=== PATIENT | female | born 1970 | race Caucasian/White ===

== ENCOUNTER 2016-11-04 15:41 | Inpatient (IN) | payer MEDICAID, OTHER ==
[~2016-11-04] VITALS: Ht 175.3 cm; Wt 117.8 kg
[~2016-11-04 15:41] MED LIST: ZOFR4TAB3 SL
[2016-11-04 16:17] VITALS: BP 147/101; PULSE 126; RESP 16; TEMP 99.3; O2SAT 97
[2016-11-04] MEDS ORDERED: SODIUM CHLORIDE 0.9% FLUSH 5 ML FLUSH IVF PRN (17:30)
--- NOTE | 2016-11-04 18:11 | RADHPO ---
EXAM DATE/TIME: 11/04/2016 17:33 [place] COMPARISON: CT ABDOMEN & PELVIS W/O CONTRAST, September 21, 2016, 20:07. INDICATIONS : Cough. MEDICAL HISTORY : None. SURGICAL HISTORY : Fusion, lumbar. ENCOUNTER: Initial ACUITY: 3 weeks PAIN SCORE: 2/10 LOCATION: Bilateral chest FINDINGS: There is focal opacity in the lateral left base which may be infiltrate or mass. Right lung is clear. No effusion is suspected. Cardiomediastinal contours are satisfactory. CONCLUSION: Left base parenchymal opacity. Followup to document clearing is recommended Cj Jain MD on November 04, 2016 at 18:08 Board Certified Radiologist. This report was verified electronically.
[2016-11-04 18:15] VITALS: BP 157/83; O2SAT 97
[2016-11-04 18:21] LABS: CHLORIDE 105 MEQ/L (98-107); POTASSIUM 3.8 MEQ/L (3.5-5.1); SODIUM (NA) 139 MEQ/L (136-145)
[2016-11-04 18:24] LABS: ANION GAP 10 MEQ/L (5-15); BICARBONATE 24.1 MEQ/L (21.0-32.0); BLOOD UREA NITROGEN 12 MG/DL (7-18); MAGNESIUM 2.3 MG/DL (1.5-2.5)
[2016-11-04 18:26] LABS: APTT (PATIENT) 27.6 SEC (24.3-30.1); PROTHROMBIN TIME - PATIENT 11.2 SEC (9.8-11.6)
[2016-11-04 18:27] LABS: ALT (GPT) 76 U/L (10-53); AST (GOT) 62 U/L (15-37)
[2016-11-04 18:28] LABS: AUTOMATED NEUTROPHIL # 10.9 TH/MM3 (1.8-7.7); BASOPHIL % 0.3 % (0.0-2.0); EOSINOPHIL # 0.2 TH/MM3 (0-0.4); EOSINOPHIL % 1.4 % (0.0-4.0); GLOMERULAR FILTRATION RATE 68 ML/MIN (>89); HEMATOCRIT 44.5 % (35.0-46.0); LYMPH % 13.9 % (9.0-44.0); LYMPHOCYTE # 1.8 TH/MM3 (1.0-4.8); MEAN CELL VOLUME 83.6 FL (80.0-100.0); MEAN CORPUSCULAR HEMOGLOBIN 27.1 PG (27.0-34.0); MEAN CORPUSCULAR HGB CONC 32.5 % (32.0-36.0); MONO % 2.4 % (0.0-8.0); PLATELET COUNT 306 TH/MM3 (150-450); RED BLOOD COUNT 5.33 MIL/MM3 (4.00-5.30); RED CELL DISTRIBUTION WIDTH 13.3 % (11.6-17.2); WHITE BLOOD COUNT 13.2 TH/MM3 (4.0-11.0)
[2016-11-04 18:29] LABS: TOTAL BILIRUBIN ADULT 0.5 MG/DL (0.2-1.0)
[2016-11-04 18:30] LABS: ALKALINE PHOSPHATASE 153 U/L (45-117)
[2016-11-04 18:45] LABS: HEMO FLAGS AUTO DIFF
[2016-11-04] MEDS ORDERED: PROMETHAZINE HCL 25 MG TAB PO ONE (19:00)
[2016-11-04] MEDS ORDERED: SODIUM CHLOR 0.9% 1000 ML INJ 1,000 ML IV ONE ×2 (19:15)
[2016-11-04 19:22] LABS: PLATELET ESTIMATE SMEAR NORMAL (NORMAL); PLATELET MORPHOLOGY NORMAL (NORMAL); SCAN/DIFF AUTO DIFF CONFIRMED
[2016-11-04 19:30] VITALS: BP 145/67; PULSE 101; RESP 22; O2SAT 96
[2016-11-04] MEDS ORDERED: BISACODYL 10 MG SUPP PR PRN (20:30)
[2016-11-04] MEDS ORDERED: ONDANSETRON HCL 4 MG/2 ML VIAL IVP PRN (20:30)
[2016-11-04] MEDS ORDERED: ACETAMINOPHEN/HYDROcodone 325 MG/10 MG TAB PO PRN (20:30)
[2016-11-04] MEDS ORDERED: Vancomycin Consult Pharmacy 1 EA OTHER SCH (20:30)
[2016-11-04] MEDS ORDERED: ACETAMINOPHEN/HYDROcodone 325 MG/5 MG TAB PO PRN (20:30)
[2016-11-04] MEDS ORDERED: SODIUM CHLORIDE 0.9% FLUSH 5 ML FLUSH FLUSH PRN (20:30)
[2016-11-04] MEDS: CEFEPIME INJ 1,000 MG in SODIUM CHLORIDE 0.9% INJ 100 ML IV SCH (21:25)
[2016-11-04] MEDS: ACETAMINOPHEN 325 MG TAB PO PRN (21:26)
--- NOTE | 2016-11-04 21:42 | PD ---
HPI Chief Complaint: Cold / Flu Symptoms Time Seen by Provider: 17:01 Travel History International Travel<30 days: No Contact w/Intl Traveler<30days: No Traveled to known affect area: No History of Present Illness HPI Patient is a 46-year-old female presents to emergency department 2 weeks with cough. Patient states she has had nonproductive cough and is concerned she might have developed a pneumonia. Since this time she is developed a rash in bilateral lower extremities. The rash is caused her to go to a local urgent care facility and she was referred to the emergency department further evaluation. Patient denies any fevers at home denies any shortness of breath or chest pain. She states she is otherwise healthy all of her childhood immunizations were done. She is to be in healthcare and she knows that she's had titers showing that she is immune to all vaccinatalbe diseases. PFSH Past Medical History Medical History: Denies Significant Hx Diminished Hearing: No Tetanus Vaccination: Unknown Influenza Vaccination: No ?: Not LMP: CANDY Past Surgical History Surgical History: No Previous Surgery Other Surgery: Yes (previous back injury) Social History Alcohol Use: No Tobacco Use: No Substance Use: No Allergies-Medications (Allergen,Severity, Reaction): Coded Allergies: Augmentin (Verified Allergy, Severe, 11/04/16) MD AND PATIENT HAVE OKAYED ORDER FOR AMPICILLIN - DR. WEINER SPOKE WITH ALVINO DUKES IN [facility] Biaxin (Verified Allergy, Severe, 11/04/16) Contrast Media (Verified Allergy, Severe, 11/04/16) Iopamidol (ISOVUE) (Verified Allergy, Severe, Meds Given - Hives/Rash, 11/04) Reported Meds & Prescriptions Reported Meds & Active Scripts Active No Active Prescriptions or Reported Medications Review of Systems Except as stated in HPI: all other systems reviewed are Neg Physical Exam Narrative GENERAL: Well-developed well-nourished in no apparent distress. Overweight. SKIN: Warm and dry. There are palpable purpura from the patient's hips posterior. There is also a small foci on her left flank. No cellulitis is observed. HEAD: Atraumatic. Normocephalic. EYES: Pupils equal and round. No scleral icterus. No injection or drainage. ENT: No nasal bleeding or discharge. Mucous membranes pink and moist. NECK: Trachea midline. No JVD. CARDIOVASCULAR: Regular rhythm and tachycardic. No murmur appreciated. RESPIRATORY: No accessory muscle use. No increased work of breathing. Clear to auscultation. Breath sounds equal bilaterally. GASTROINTESTINAL: Abdomen soft, non-tender, nondistended. Hepatic and splenic margins not palpable. MUSCULOSKELETAL: No obvious deformities. No clubbing. No cyanosis. No edema. NEUROLOGICAL: Awake and alert. No obvious cranial nerve deficits. Motor grossly within normal limits. Normal speech. PSYCHIATRIC: Appropriate mood and affect; insight and judgment normal. Data Data Last Documented VS Vital Signs Date Time Temp Pulse Resp B/P Pulse Ox O2 Delivery O2 Flow Rate FiO2 11/04/16 19:30 22 98 11/04/16 19:30 101 145/67 Room Air 11/04/16 16:17 99.3 Orders Electrocardiogram (11/04/16 17:21) Complete Blood Count With Diff (11/04/16 17:21) Comprehensive Metabolic Panel (11/04/16 17:21) Magnesium (Mg) (11/04/16 17:21) Prothrombin Time / Inr (Pt) (11/04/16 17:21) Act Partial Throm Time (Ptt) (11/04/16 17:21) Ecg Monitoring (11/04/16 17:21) Bilateral Bp Monitoring (11/04/16 17:21) Iv Access Insert/Monitor (11/04/16 17:21) Oximetry (11/04/16 17:21) Oxygen Administration (11/04/16 17:21) Sodium Chloride 0.9% Flush (Ns Flush) (11/04/16 17:30) Chest, Pa & Lat (11/04/16 17:21) Urinalysis - C+S If Indicated (11/04/16 17:21) Ed Urine Pregnancytest Poc (11/04/16 17:21) Blood Culture (11/04/16 19:00) Promethazine (Phenergan) (11/04/16 19:00) Sodium Chlor 0.9% 1000 Ml Inj (Ns 1000 M (11/04/16 19:15) Sodium Chlor 0.9% 1000 Ml Inj (Ns 1000 M (11/04/16 19:15) Lactic Acid (11/04/16 19:12) Westergren Sedimentation Rate (11/04/16 19:12) C-Reactive Protein (Crp) (11/04/16 16:55) Phosphorus (Po4) (11/04/16 16:55) Troponin I (11/04/16 16:55) Admit Order (Ed Use Only) (11/04/16 ) Labs Laboratory Tests Test 11/04/16 11/04/16 16:55 19:20 White Blood Count 13.2 TH/MM3 Red Blood Count 5.33 MIL/MM3 Hemoglobin 14.5 GM/DL Hematocrit 44.5 % Mean Corpuscular Volume 83.6 FL Mean Corpuscular Hemoglobin 27.1 PG Mean Corpuscular Hemoglobin 32.5 % Concent Red Cell Distribution Width 13.3 % Platelet Count 306 TH/MM3 Mean Platelet Volume 8.4 FL Neutrophils (%) (Auto) 82.0 % Lymphocytes (%) (Auto) 13.9 % Monocytes (%) (Auto) 2.4 % Eosinophils (%) (Auto) 1.4 % Basophils (%) (Auto) 0.3 % Neutrophils # (Auto) 10.9 TH/MM3 Lymphocytes # (Auto) 1.8 TH/MM3 Monocytes # (Auto) 0.3 TH/MM3 Eosinophils # (Auto) 0.2 TH/MM3 Basophils # (Auto) 0.0 TH/MM3 CBC Comment AUTO DIFF Differential Comment AUTO DIFF CONFIRMED Platelet Estimate NORMAL Platelet Morphology Comment NORMAL Red Cell Morphology Comment NORMAL Erythrocyte Sedimentation Rate 36 mm/hr Prothrombin Time 11.2 SEC Prothromb Time International 1.0 RATIO Ratio Activated Partial 27.6 SEC Thromboplast Time Sodium Level 139 MEQ/L Potassium Level 3.8 MEQ/L Chloride Level 105 MEQ/L Carbon Dioxide Level 24.1 MEQ/L Anion Gap 10 MEQ/L Blood Urea Nitrogen 12 MG/DL Creatinine 0.89 MG/DL Estimat Glomerular Filtration 68 ML/MIN Rate Random Glucose 124 MG/DL Calcium Level 8.6 MG/DL Phosphorus Level 2.7 MG/DL Magnesium Level 2.3 MG/DL Total Bilirubin 0.5 MG/DL Aspartate Amino Transf 62 U/L (AST/SGOT) Alanine Aminotransferase 76 U/L (ALT/SGPT) Alkaline Phosphatase 153 U/L Troponin I LESS THAN 0.02 NG/ML C-Reactive Protein 16.00 MG/DL Total Protein 8.9 GM/DL Albumin 2.9 GM/DL Lactic Acid Level 1.4 mmol/L [facility] Medical Decision Making Medical Screen Exam Complete: Yes Emergency Medical Condition: Yes Differential Diagnosis HSP, vasculitis, Pneumonia, sepsis, Sirs, URI. Narrative Course Patient was roomed in the emergency department, mildly tachycardic on arrival. She is not febrile. She has one for surgical tear on arrival. Chest x-ray shows that she has pneumonia. Labs show an elevated white blood cell count confirming Sirs criteria and therefore sepsis. This was diagnosed after labs return. Merely following she was given 2 L normal saline bolus, fluid resuscitation was kept to a minimum after lactate returned at 1.4. She was started on Levaquin IV. She does have palpable purpura of the bilateral lower extremities. And a younger person would consider HSP as a cause however she seems out of the age range for this particular condition. Vasculitis is considered. ESR is minimally elevated CRP is likewise minimally elevated. Given her pneumonia with Sirs criteria and purpura, she was discussed with the hospitalist for admission who agrees. Diagnosis Primary Impression: Sepsis Qualified Code: A41.9 - Sepsis, due to unspecified organism Additional Impressions: Pneumonia Purpura Admitting Information Admitting Physician Requests: Admit Scripts No Active Prescriptions or Reported Meds Condition: Pascual Jiménez MD Nov 04, 2016 21:42
--- NOTE | 2016-11-04 22:45 | EKG ---
Date Performed: 11/04/2016 Time Performed: 17:38:16 PTAGE: 46 years EKG: Sinus tachycardia Lateral T wave changes are nonspecific Borderline ECG NO PREVIOUS TRACING DOCTOR: Cornelio Lepe Interpretating Date/Time 11/04/2016 22:43:58
[2016-11-04] MEDS ORDERED: VANCOMYCIN INJ 1,700 MG in SODIUM CHLORID 0.9% 500 ML INJ 500 ML IV SCH (23:00)
[2016-11-04] MEDS: VANCOMYCIN INJ 1,700 MG in SODIUM CHLORID 0.9% 500 ML INJ 500 ML IV SCH (23:05)
[2016-11-04 23:10] VITALS: BP 158/87; PULSE 92; RESP 16; O2SAT 97
[2016-11-05] VITALS (7 sets, daily range): BP systolic 115–150; BP diastolic 73–82; PULSE 91–110; RESP 18–20; TEMP 97.3–98.5; O2SAT 94–98
[2016-11-05 01:31] LABS: BLOOD, URINE NEG (NEG); GLUCOSE,URINE NEG (NEG); KETONE, URINE NEG (NEG); NITRITE,URINE NEG (NEG); PH, URINE 5.5 (5.0-8.5)
[2016-11-05] MEDS: SODIUM CHLOR 0.9% 1000 ML INJ 1,000 ML IV SCH ×4 (01:31→22:10)
[2016-11-05] MEDS: SODIUM CHLORIDE 0.9% FLUSH 5 ML FLUSH FLUSH SCH ×3 (01:31→21:00)
[2016-11-05 01:35] LABS: URINE COLOR AMBER (YELLW/STRAW)
[2016-11-05 01:37] LABS: WBC, URINE 0-2 /hpf (0-5)
[2016-11-05 01:38] LABS: COMMENT (UR) CULT NOT INDICATED; CULTURE IF INDICATED CULT NOT INDICATED; SQUAMOUS EPITHELIAL CELL URINE > 8 /hpf (0-5)
[2016-11-05 06:46] LABS: AUTOMATED NEUTROPHIL # 7.8 TH/MM3 (1.8-7.7); BASOPHIL % 0.2 % (0.0-2.0); EOSINOPHIL # 0.2 TH/MM3 (0-0.4); EOSINOPHIL % 2.2 % (0.0-4.0); HEMATOCRIT 39.4 % (35.0-46.0); HEMO FLAGS DIFF FINAL; LYMPH % 22.2 % (9.0-44.0); LYMPHOCYTE # 2.4 TH/MM3 (1.0-4.8); MEAN CELL VOLUME 84.3 FL (80.0-100.0); MEAN CORPUSCULAR HEMOGLOBIN 27.6 PG (27.0-34.0); MEAN CORPUSCULAR HGB CONC 32.8 % (32.0-36.0); MONO % 4.6 % (0.0-8.0); NEUT % 70.8 % (16.0-70.0); PLATELET COUNT 255 TH/MM3 (150-450); RED BLOOD COUNT 4.68 MIL/MM3 (4.00-5.30); RED CELL DISTRIBUTION WIDTH 13.7 % (11.6-17.2); WHITE BLOOD COUNT 10.9 TH/MM3 (4.0-11.0)
[2016-11-05 06:51] LABS: CHLORIDE 111 MEQ/L (98-107); SODIUM (NA) 144 MEQ/L (136-145)
[2016-11-05 07:16] LABS: ALKALINE PHOSPHATASE 113 U/L (45-117); ALT (GPT) 67 U/L (10-53); ANION GAP 10 MEQ/L (5-15); AST (GOT) 47 U/L (15-37); BICARBONATE 23.4 MEQ/L (21.0-32.0); BLOOD UREA NITROGEN 13 MG/DL (7-18); GLOMERULAR FILTRATION RATE 92 ML/MIN (>89); TOTAL BILIRUBIN ADULT 0.5 MG/DL (0.2-1.0)
[2016-11-05] MEDS: ACETAMINOPHEN 325 MG TAB PO PRN ×2 (07:17→22:06)
[2016-11-05] MEDS: CEFEPIME INJ 1,000 MG in SODIUM CHLORIDE 0.9% INJ 100 ML IV SCH ×2 (09:50→22:07)
[2016-11-05] MEDS: VANCOMYCIN INJ 1,700 MG in SODIUM CHLORID 0.9% 500 ML INJ 500 ML IV SCH ×2 (10:08→23:03)
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
[2016-11-05] MEDS: guaiFENesin E.R. 600 MG TAB PO SCH ×2 (13:40→22:05)
[2016-11-05] MEDS: diphenhydrAMINE HCL 25 MG CAP PO PRN ×2 (13:40→23:02)
[2016-11-05] MEDS: predniSONE 20 MG TAB PO SCH ×2 (13:40→22:05)
[2016-11-05] MEDS ORDERED: RESP: ALBUTEROL 2.5 MG/IPRATROPIUM 0.5 MG NEB (PRN) NEB (14:00)
[2016-11-05 15:58] LABS: RHEUMATOID FACTOR TRIGGER LESS THAN 10.0 IU/ML (0.0-14.9)
[2016-11-05] MEDS: RESP: ALBUTEROL 2.5 MG/IPRATROPIUM 0.5 MG NEB (SCH) NEB ×2 (15:59→21:50)
[2016-11-05] MEDS: HYDROcodone 5 MG/HOMATROPINE 1.5 MG SYRUP 5 ML CUP PO PRN (22:06)
[2016-11-06] VITALS: BP 118/66; PULSE 102; RESP 18; TEMP 97.2; O2SAT 96
[2016-11-06] MEDS: RESP: ALBUTEROL 2.5 MG/IPRATROPIUM 0.5 MG NEB (SCH) NEB ×3 (03:25→16:00)
[2016-11-06 04:00] VITALS: BP 115/61; PULSE 118; RESP 20; TEMP 97.7; O2SAT 98
[2016-11-06 07:08] LABS: BASOPHIL % 0.2 % (0.0-2.0); HEMATOCRIT 32.9 % (35.0-46.0); HEMO FLAGS DIFF FINAL; LYMPH % 9.2 % (9.0-44.0); LYMPHOCYTE # 0.7 TH/MM3 (1.0-4.8); MEAN CELL VOLUME 83.9 FL (80.0-100.0); MEAN CORPUSCULAR HEMOGLOBIN 27.8 PG (27.0-34.0); MEAN CORPUSCULAR HGB CONC 33.1 % (32.0-36.0); MONO % 0.9 % (0.0-8.0); NEUT % 89.7 % (16.0-70.0); PLATELET COUNT 237 TH/MM3 (150-450); POTASSIUM 4.1 MEQ/L (3.5-5.1); RED BLOOD COUNT 3.93 MIL/MM3 (4.00-5.30); RED CELL DISTRIBUTION WIDTH 12.9 % (11.6-17.2); WHITE BLOOD COUNT 7.8 TH/MM3 (4.0-11.0)
[2016-11-06 07:12] LABS: BICARBONATE 21.1 MEQ/L (21.0-32.0); MAGNESIUM 2.2 MG/DL (1.5-2.5)
[2016-11-06 08:00] VITALS: BP 138/60; PULSE 105; RESP 20; TEMP 97.7; O2SAT 96
[2016-11-06] MEDS: SODIUM CHLORIDE 0.9% FLUSH 5 ML FLUSH FLUSH SCH (09:00)
[2016-11-06] MEDS ORDERED: PHARMACY ORDERED LAB XX ONE (09:45)
[2016-11-06] MEDS: VANCOMYCIN INJ 1,700 MG in SODIUM CHLORID 0.9% 500 ML INJ 500 ML IV SCH (10:23)
[2016-11-06] MEDS: CEFEPIME INJ 1,000 MG in SODIUM CHLORIDE 0.9% INJ 100 ML IV SCH (10:24)
[2016-11-06] MEDS: guaiFENesin E.R. 600 MG TAB PO SCH (10:27)
[2016-11-06] MEDS: predniSONE 20 MG TAB PO SCH (10:27)
[2016-11-06] MEDS: SODIUM CHLOR 0.9% 1000 ML INJ 1,000 ML IV SCH (10:29)
--- NOTE | 2016-11-06 10:56 | HHI.PR ---
Subjective Remarks Patient seen and examined today. Patient states that she is feeling better. She is able take deeper breaths without coughing. Rash is improving. Objective Vitals Vital Signs Date Time Temp Pulse Resp B/P Pulse Ox O2 Delivery O2 Flow Rate FiO2 11/06/16 08:00 97.7 105 20 138/60 96 11/06/16 04:00 97.7 118 20 115/61 98 11/06/16 00:00 97.2 102 18 118/66 96 11/05/16 20:00 97.3 108 19 150/75 97 11/05/16 20:00 101 11/05/16 16:00 98.5 106 20 141/73 97 11/05/16 12:00 97.7 101 20 115/82 96 I/O 11/05/16 11/05/16 11/05/16 11/06/16 11/06/16 11/06/16 07:00 15:00 23:00 07:00 15:00 23:00 Intake Total 1690 ml 240 ml Balance 1690 ml 240 ml Intake Oral 120 ml 240 ml IV Total 1570 ml # Voids 2 2 2 # Bowel Movements 0 0 0 Result Diagram: 11/06/16 0635 11/06/16 0635 Objective Remarks GENERAL: Well-developed, well-nourished, in no acute distress. alert and orientated HEENT: Head is normocephalic without any lesions or masses noted. Facial features are symmetric. Eyes: Extraocular muscles are intact. Conjunctivae were clear. NECK: Supple without any masses. Trachea midline no deviation. No JVD, CARDIAC: Regular rhythm, regular rate. S1/S2 are heard. No murmurs gallops or rubs. LUNGS: Clear to auscultation bilaterally. No wheeze, rhonchi or rales. No use of accessory muscles on inspiration or expiration. ABDOMEN: Soft, nontender. Nondistended. Bowel sounds heard in all 4 quadrants. No organomegaly or masses. Negative rebound, negative guarding EXTREMITIES: No edema, pulses are equal bilaterally. No cyanosis or clubbing NEUROLOGY: Mood and affect appear appropriate. Cranial nerves II through XII grossly intact. Muscle strength 5/5 in upper and lower extremities bilaterally. Deep tendon reflexes are 2+ in upper and lower extremities bilaterally. SKIN: Patient does have pinpoint rash starting from lower back all way down to the feet. The rash is rather extensive with pinpoint petechial type lesions measuring less than 2 mm. On prolonged examination we could find some palpable lesions that could be considered palpable purpura. Rash appears to be clearing Urinary Catheter: No Vascular Central Line Catheter: No A/P Assessment and Plan Sepsis, resolved Patient met criteria on admission with leukocytosis, tachycardia, x-ray with left base opacity Patient started on empirical antibiotics include vancomycin and cefepime Blood cultures negative for 1 day Urinalysis is clear Awaiting influenza testing, strep pneumo, Legionella Left lung pneumonia Antibiotics as above Duo nebs as needed Continue guaifenesin 600 mg twice daily Continue prednisone 40 mg twice daily Continue Hycodan cough medicine Hyperglycemia, likely secondary to steroids use Check hemoglobin A1c Accu-Cheks with sliding scale insulin Leukocytosis, resolved Continue monitor CBC Purpura/petechiae, improving C-reactive protein and sedimentation rate are mildly elevated, Skin lesions are very minimally palpable. Appears to be more petechiae. However workup for vasculitis Awaiting Anca profile, ADITYA, hepatitis panel, HIV Rheumatoid factor,, complement C3/C4 are normal Chronic neck and back pain Continue pain control DVT prevention Sequential compression devices Written by Jay King PA-C, acting as scribe for Dr. De La Paz on 11/06/16 at 1245. The documentation accurately reflects the work and decisions performed face-to- face by Dr. De La Paz on 11/06/16 at 1245. Discharge Planning Discharge home in stable condition Activity: Ad vishal. Diet: Healthy heart diet Medications per medication reconciliation Follow-up with primary medical doctor in one week Jay King Nov 06, 2016 10:56
[2016-11-06] MEDS ORDERED: DEXTROSE 50% IN WATER 50 ML VIAL(D50) IV PUSH PRN (11:00)
[2016-11-06] MEDS ORDERED: GLUCAGON 1 MG/ML VIAL OTHER PRN (11:00)
[2016-11-06 12:00] VITALS: BP 129/74; PULSE 108; RESP 22; TEMP 97.4; O2SAT 96
--- NOTE | 2016-11-06 12:51 | HHI.DCPOC ---
Discharge Care Plan Diagnosis: (1) Sepsis (2) Pneumonia Goals to Promote Your Health * To prevent worsening of your condition and complications * To maintain your health at the optimal level Directions to Meet Your Goals Take your medications as prescribed Follow your dietary instruction Follow activity as directed Keep your appointments as scheduled Take your immunizations and boosters as scheduled If your symptoms worsen call your PCP, if no PCP go to Urgent Care Center or Emergency Room Smoking is Dangerous to Your Health. Avoid second hand smoke Call the 24-hour hour crisis hotline for domestic abuse at Jay King Nov 06, 2016 12:51
[2016-11-06] MEDS: diphenhydrAMINE HCL 25 MG CAP PO PRN (13:41)
[2016-11-06] MEDS: HYDROcodone 5 MG/HOMATROPINE 1.5 MG SYRUP 5 ML CUP PO PRN (13:41)
[2016-11-06] MEDS: INSULIN ASPART SUPPLEMENTAL SCALE SQ SCH ×2 (13:42→16:00)
[2016-11-06 14:02] LABS: HEMOGLOBIN A1a 1.6 %; HEMOGLOBIN Ao 83.2 %; HEMOGLOBIN LA1C 2.7 %; HEMOGLOBIN P3 4.1 %
[2016-11-06] MEDS ORDERED: CIPR250T52 PO (15:19)
[2016-11-06] MEDS ORDERED: AMOX500C PO (15:19)
[2016-11-06] MEDS ORDERED: PRED10 PO (15:19)
[2016-11-06] MEDS ORDERED: LEVA750T PO (15:29)
[2016-11-06] MEDS ORDERED: ALBUTEROL SULFATE 90 MCG/ACT HFA 8 GM INHALER INH PRN (15:30)
[2016-11-06] MEDS ORDERED: ALBUTEROL SULFATE 90 MCG/ACT HFA 18 GM INHALER INH SCH (18:00)
[2016-11-06] MEDS ORDERED: VANCOMYCIN INJ 1,250 MG in SODIUM CHLOR 0.9% 250 ML INJ 250 ML IV SCH (20:00)
[2016-11-07 15:07] LABS: ANA SCREEN NEG (NEG)
[2016-11-08] MEDS ORDERED: PHARMACY ORDERED LAB XX ONE (03:45)
[2016-11-09 03:50] LABS: MYELOPEROXIDASE LESS THAN 1.0 AI (<1.0); PROTEINASE-3 LESS THAN 1.0 AI (<1.0)
== END 2016-11-06 19:29 | disposition home or self-care (01) | DRG 871 ==
LOC: PHED 15:41 → PHEDA 20:16 → PH3A 11-05 01:12
PROVIDERS: ADMIT Family Medicine; ATTEND Family Medicine
DX: A41.9 Sepsis, unspecified organism (principal); J18.9 Pneumonia, unspecified organism; R21 Rash and other nonspecific skin eruption; G89.29 Other chronic pain; M54.2 Cervicalgia; M54.9 Dorsalgia, unspecified; Z87.442 Personal history of urinary calculi; L98.9 Disorder of the skin and subcutaneous tissue, unspecified; T38.0X5A Adverse effect of glucocorticoids and synthetic analogues, initial encounter; R73.9 Hyperglycemia, unspecified
CPT/HCPCS: 71020; 80048; 80053; 80074; 80202; 81001; 82948; 83036; 83605; 83735; 84100; 84484; 85025; 85610; 85652; 85730; 86021; 86038; 86140; 86160; 86430; 86703; 87040; 87449; 87804; 93005; 94640; 94664; 96360; J0692; J1815; J3370; J7030; J7040; J7512; Q0169

== ENCOUNTER 2018-01-26 00:29 | Inpatient (IN) | payer MEDICAID, OTHER ==
[2018-01-26] VITALS (9 sets, daily range): BP systolic 119–179; BP diastolic 58–82; PULSE 78–109; RESP 15–22; TEMP 96.5–98; O2SAT 94–99
[~2018-01-26] VITALS: Ht 167.6 cm; Wt 130.7 kg
[~2018-01-26 00:29] MED LIST changes: +LEVA750T PO; +PRED10 PO; -ZOFR4TAB3 SL
[2018-01-26] MEDS ORDERED: SODIUM CHLOR 0.9% 1000 ML INJ 1,000 ML IV ONE (01:27)
[2018-01-26] MEDS ORDERED: ONDANSETRON HCL 4 MG/2 ML VIAL IV PUSH ONE (01:30)
[2018-01-26] MEDS ORDERED: HYDROmorphone HCL PF 1 MG/ML VIAL IV PUSH ONE (01:30)
[2018-01-26] MEDS ORDERED: KETOROLAC TROMETHAMINE 30 MG/ML (IVP) VIAL IV PUSH ONE (01:30)
[2018-01-26] MEDS ORDERED: SODIUM CHLORIDE 0.9% FLUSH 10 ML FLUSH IVF PRN (01:30)
--- NOTE | 2018-01-26 01:32 | PD ---
HPI Chief Complaint: Flank/Kidney Pain Time Seen by Provider: 01:27 Travel History International Travel<30 days: No Contact w/Intl Traveler<30days: No Traveled to known affect area: No History of Present Illness HPI The patient is a 47-year-old female that complains of nausea, left-sided flank pain which is sharp and a 10/10, stabbing since 11 PM tonight. She does have a history of kidney stones. She denies any dysuria, frequency or urgency. The pain started suddenly. PFSH Past Medical History Cancer: No Cardiovascular Problems: No Diminished Hearing: No Endocrine: No Gastrointestinal Disorders: No Genitourinary: Yes Headaches: Yes (CONSTANT) Immune Disorder: No Implanted Vascular Access Dvce: No Kidney Stones: Yes Musculoskeletal: Yes Neurologic: Yes Psychiatric: No Respiratory: No ?: Not Past Surgical History Other Surgery: No (previous back injury) Social History Alcohol Use: No Tobacco Use: No Substance Use: No Allergies-Medications (Allergen,Severity, Reaction): Coded Allergies: amoxicillin (Unverified Allergy, Severe, 06/13/17) MD AND PATIENT HAVE OKAYED ORDER FOR AMPICILLIN - DR. WEINER SPOKE WITH ALVINO DUKES IN FAMILY PLACE clarithromycin (Unverified Allergy, Severe, 06/13/17) clavulanic acid (Unverified Allergy, Severe, 06/13/17) MD AND PATIENT HAVE OKAYED ORDER FOR AMPICILLIN - DR. WEINER SPOKE WITH ALVINO DUKES IN FAMILY PLACE diatrizoate meglumine (Unverified Allergy, Severe, 06/13/17) gadobenic acid (Unverified Allergy, Severe, 06/13/17) gadodiamide (Unverified Allergy, Severe, 06/13/17) gadoteridol (Unverified Allergy, Severe, 06/13/17) iodixanol (Unverified Allergy, Severe, 06/13/17) iohexol (Unverified Allergy, Severe, 06/13/17) iopamidol (Unverified Allergy, Severe, Meds Given - Hives/Rash, 06/13/17) Reported Meds & Prescriptions Reported Meds & Active Scripts Active Review of Systems Except as stated in HPI: all other systems reviewed are Neg Physical Exam Narrative GENERAL: The patient is alert, oriented 3, obese in moderate to severe distress with her left flank pain. Her vital signs show blood pressure 148/74 but are otherwise normal. SKIN: Focused skin assessment warm/dry. HEAD: Atraumatic. Normocephalic. EYES: Pupils equal and round. No scleral icterus. No injection or drainage. ENT: No nasal bleeding or discharge. Mucous membranes pink and moist. NECK: Trachea midline. No JVD. CARDIOVASCULAR: Regular rate and rhythm. No murmur appreciated. RESPIRATORY: No accessory muscle use. Clear to auscultation. Breath sounds equal bilaterally. GASTROINTESTINAL: Abdomen soft, with minimal tenderness to direct palpation over the left flank, nondistended. Hepatic and splenic margins not palpable. No guarding or rebound is present. MUSCULOSKELETAL: No obvious deformities. No clubbing. No cyanosis. No edema. NEUROLOGICAL: Awake and alert. No obvious cranial nerve deficits. Motor grossly within normal limits. Normal speech. PSYCHIATRIC: Appropriate mood and affect; insight and judgment normal. Data Data Last Documented VS Vital Signs Date Time Temp Pulse Resp B/P (MAP) Pulse Ox O2 Delivery O2 Flow Rate FiO2 01/26/18 00:36 97.2 90 18 148/74 (98) 96 Orders Orders Complete Blood Count With Diff (01/26/18 01:18) Comprehensive Metabolic Panel (01/26/18:18) Urinalysis - C+S If Indicated (01/26/18 01:18) Ct Abd/Pel W/O Iv Contrast (01/26/18 01:27) Ecg Monitoring (01/26/18 01:27) Iv Access Insert/Monitor (01/26/18 01:27) Ketorolac Inj (Toradol Inj) (01/26/18 01:30) Ondansetron Inj (Zofran Inj) (01/26/18 01:30) Sodium Chloride 0.9% Flush (Ns Flush) (01/26/18 01:30) Sodium Chlor 0.9% 1000 Ml Inj (Ns 1000 M (01/26/18 01:27) Hydromorphone Pf Inj (Dilaudid Pf Inj) (01/26/18 01:30) Hydromorphone Pf Inj (Dilaudid Pf Inj) (01/26/18 01:45) Ondansetron Inj (Zofran Inj) (01/26/18 02:15) Prochlorperazine Inj (Compazine Inj) (01/26/18 03:00) Ondansetron Inj (Zofran Inj) (01/26/18 03:15) Hydromorphone Pf Inj (Dilaudid Pf Inj) (01/26/18 03:15) Ciprofloxacin 400 Mg Premix (Cipro 400 M (01/26/18 04:00) Consult Urology (01/26/18 ) Admit To Inpatient (01/26/18 ) Vital Signs (Adult) Q4H (01/26/18 03:17) Activity Oob Ad Britney (01/26/18 03:17) Intake + Output SUE.QSHIFT (01/26/18 03:17) Diet Regular Basic (01/26/18 Breakfast) Sodium Chlor 0.9% 1000 Ml Inj (Ns 1000 M (01/26/18 03:17) Sodium Chloride 0.9% Flush (Ns Flush) (01/26/18 03:30) Sodium Chloride 0.9% Flush (Ns Flush) (01/26/18 09:00) Ondansetron Inj (Zofran Inj) (01/26/18 03:30) Comprehensive Metabolic Panel (01/27/18 06:00) Complete Blood Count With Diff (01/27/18 06:00) Scd Bilateral/Knee High SUE.BID (01/26/18 03:17) Giancarlo Bilateral/Knee High SUE.QSHIFT (01/26/18 03:19) Acetaminophen (Tylenol) (01/26/18 03:30) Acetamin-Hydrocod 325-5 Mg ([place] 5-325 (01/26/18 03:30) Morphine Inj (Morphine Inj) (01/26/18 03:30) Docusate Sodium-Senna (Karyn-Colace) (01/26/18 09:00) Magnesium Hydroxide Liq (Milk Of Magnesi (01/26/18 03:30) Sennosides (Senokot) (01/26/18 03:30) Bisacodyl Supp (Dulcolax Supp) (01/26/18 03:30) Lactulose Liq (Lactulose Liq) (01/26/18 03:30) Inpatient Certification (01/26/18 ) Labs Laboratory Tests Test 01/26/18 01:10 White Blood Count 13.8 TH/MM3 Red Blood Count 4.94 MIL/MM3 Hemoglobin 13.6 GM/DL Hematocrit 41.3 % Mean Corpuscular Volume 83.7 FL Mean Corpuscular Hemoglobin 27.5 PG Mean Corpuscular Hemoglobin Concent 32.9 % Red Cell Distribution Width 13.0 % Platelet Count 274 TH/MM3 Mean Platelet Volume 8.2 FL Neutrophils (%) (Auto) 78.2 % Lymphocytes (%) (Auto) 16.0 % Monocytes (%) (Auto) 4.3 % Eosinophils (%) (Auto) 0.9 % Basophils (%) (Auto) 0.6 % Neutrophils # (Auto) 10.8 TH/MM3 Lymphocytes # (Auto) 2.2 TH/MM3 Monocytes # (Auto) 0.6 TH/MM3 Eosinophils # (Auto) 0.1 TH/MM3 Basophils # (Auto) 0.1 TH/MM3 CBC Comment DIFF FINAL Differential Comment Blood Urea Nitrogen 16 MG/DL Creatinine 1.20 MG/DL Random Glucose 149 MG/DL Total Protein 8.3 GM/DL Albumin 3.9 GM/DL Calcium Level 9.2 MG/DL Alkaline Phosphatase 124 U/L Aspartate Amino Transf (AST/SGOT) 21 U/L Alanine Aminotransferase (ALT/SGPT) 34 U/L Total Bilirubin 0.3 MG/DL Sodium Level 141 MEQ/L Potassium Level 4.0 MEQ/L Chloride Level 109 MEQ/L Carbon Dioxide Level 22.0 MEQ/L Anion Gap 10 MEQ/L Estimat Glomerular Filtration Rate 48 ML/MIN MDM Medical Decision Making Medical Screen Exam Complete: Yes Emergency Medical Condition: Yes Medical Record Reviewed: Yes Interpretation(s) The CT abdomen/pelvis without IV contrast shows a 6 mm stone in the proximal left ureter just above the UPJ. There is mild to moderate hydronephrosis associated with this present there is a 5 mm nonobstructing stone of the left lower pole and no sooner obstructive uropathy is present on the right. Also incidentally noted is fatty liver and 12 mm cyst of the right hepatic lobe. These are stable. Differential Diagnosis Left ureteral stone, other obstructive uropathy, urinary tract infection, pyelonephritis, colitis Narrative Course Despite 8 mg of Zofran IV and 10 mg of Compazine IV the patient is still nauseated. She states the pain is a 3/10 and she can tolerate that. A 6 mm stone will be difficult to pass. Impression: Left ureteral stone with intractable pain. Plan: The patient is miserable and will need admission to the hospital. I discussed the patient with Dr. Gonzalez. Physician Communication Physician Communication I discussed the patient with Dr. Gonzalez, the patient will be admitted to her. Diagnosis Primary Impression: Left ureteral calculus Additional Impression: Intractable abdominal pain Admitting Information Admitting Physician Requests: Admit Bryon King MD Jan 26, 2018 01:32
[2018-01-26] MEDS ORDERED: HYDROmorphone HCL PF 2 MG/ML VIAL IV PUSH ONE ×2 (01:45→03:15)
[2018-01-26 01:46] LABS: AUTOMATED NEUTROPHIL # 10.8 TH/MM3 (1.8-7.7); BASOPHIL # 0.1 TH/MM3 (0-0.2); BASOPHIL % 0.6 % (0.0-2.0); EOSINOPHIL # 0.1 TH/MM3 (0-0.4); EOSINOPHIL % 0.9 % (0.0-4.0); HEMATOCRIT 41.3 % (35.0-46.0); HEMOGLOBIN 13.6 GM/DL (11.6-15.3); LYMPHOCYTE # 2.2 TH/MM3 (1.0-4.8); MEAN CELL VOLUME 83.7 FL (80.0-100.0); MEAN CORPUSCULAR HEMOGLOBIN 27.5 PG (27.0-34.0); MEAN CORPUSCULAR HGB CONC 32.9 % (32.0-36.0); MEAN PLATELET VOLUME 8.2 FL (7.0-11.0); MONO % 4.3 % (0.0-8.0); MONOCYTE # 0.6 TH/MM3 (0-0.9); NEUT % 78.2 % (16.0-70.0); PLATELET COUNT 274 TH/MM3 (150-450); RED BLOOD COUNT 4.94 MIL/MM3 (4.00-5.30); WHITE BLOOD COUNT 13.8 TH/MM3 (4.0-11.0)
[2018-01-26 01:53] LABS: CHLORIDE 109 MEQ/L (98-107); SODIUM (NA) 141 MEQ/L (136-145)
[2018-01-26 01:56] LABS: CALCIUM 9.2 MG/DL (8.5-10.1)
[2018-01-26 01:57] LABS: ALBUMIN 3.9 GM/DL (3.4-5.0); BLOOD UREA NITROGEN 16 MG/DL (7-18); GLUCOSE,RANDOM 149 MG/DL (74-106)
[2018-01-26 02:00] LABS: ALT (GPT) 34 U/L (10-53); AST (GOT) 21 U/L (15-37); GLOMERULAR FILTRATION RATE 48 ML/MIN (>89)
[2018-01-26 02:01] LABS: TOTAL BILIRUBIN ADULT 0.3 MG/DL (0.2-1.0)
[2018-01-26 02:02] LABS: TOTAL PROTEIN 8.3 GM/DL (6.4-8.2)
[2018-01-26 02:03] LABS: ALKALINE PHOSPHATASE 124 U/L (45-117)
[2018-01-26] MEDS ORDERED: ONDANSETRON HCL 4 MG/2 ML VIAL IV ONE ×2 (02:15→03:15)
--- NOTE | 2018-01-26 02:47 | RADRPT ---
EXAM DATE/TIME: 01/26/2018 02:13 [facility] COMPARISON: CT ABDOMEN & PELVIS W/O CONTRAST, September 21, 2016, 20:07. INDICATIONS : Left flank pain with hematuria. ORAL CONTRAST: No oral contrast ingested. RADIATION DOSE: 43.79 CTDIvol (mGy) MEDICAL HISTORY : Renal calculi. SURGICAL HISTORY : None. ENCOUNTER: Initial ACUITY: 1 day PAIN SCALE: 10/10 LOCATION: Left flank TECHNIQUE: Volumetric scanning of the abdomen and pelvis was performed. Using automated exposure control and ad justment of the mA and/or kV according to patient size, radiation dose was kept as low as reasonably achievable to obtain optimal diagnostic quality images. DICOM format image data is available electro nically for review and comparison. FINDINGS: There is a 6 mm stone in the proximal left ureter just below the UPJ. Associated mild to moderate hyd ronephrosis. There is a 5 mm nonobstructing stone of the left lower pole. No stone or obstructive uro marc on the right. Fatty liver with a long-term stable 12 mm cyst of the right hepatic lobe again noted. Noncontrast zaire earance of the spleen, pancreas and adrenal glands within normal limits. No obstruction or inflammato ry changes seen of the gastrointestinal tract. The appendix is normal. The Visualized lung bases are clear. No acute bony abnormality. CONCLUSION: 1. 6 mm stone in the proximal left ureter causing mild to moderate obstructive uropathy. The stone ca n be seen on the initial grease worker radiograph. There is a nonobstructing stone of the left lower pole. 2. Fatty liver and a benign right hepatic lobe cyst. Cj Persaud MD on January 26, 2018 at 2:41 Board Certified Radiologist. This report was verified electronically.
[2018-01-26] MEDS ORDERED: PROCHLORPERAZINE INJ 10 MG/2 ML VIAL IV PUSH ONE (03:00)
[2018-01-26] MEDS: CIPROFLOXACIN 400 MG PREMIX 200 ML IV SCH ×2 (03:28→15:30)
[2018-01-26] MEDS: SODIUM CHLOR 0.9% 1000 ML INJ 1,000 ML IV SCH ×2 (03:29→15:28)
[2018-01-26] MEDS ORDERED: LACTULOSE SYRUP 20 GM/30 ML CUP PO PRN (03:30)
[2018-01-26] MEDS ORDERED: MORPHINE SULFATE 2 MG/ML SYRINGE IV PUSH PRN (03:30)
[2018-01-26] MEDS ORDERED: SENNOSIDES 8.6 MG TAB PO PRN (03:30)
[2018-01-26] MEDS ORDERED: BISACODYL 10 MG SUPP RECTAL PRN (03:30)
[2018-01-26] MEDS ORDERED: ACETAMINOPHEN/HYDROcodone 325 MG/5 MG TAB PO PRN (03:30)
[2018-01-26] MEDS ORDERED: ACETAMINOPHEN 325 MG TAB PO PRN (03:30)
[2018-01-26] MEDS ORDERED: MAGNESIUM HYDROXIDE SUSP 30 ML CUP PO PRN (03:30)
[2018-01-26] MEDS ORDERED: SODIUM CHLORIDE 0.9% FLUSH 10 ML FLUSH IV FLUSH PRN (03:30)
[2018-01-26] MEDS: ONDANSETRON HCL 4 MG/2 ML VIAL IVP PRN ×3 (08:39→20:17)
[2018-01-26] MEDS: DOCUSATE SODIUM 50 MG/SENNA 8.6 MG TAB PO SCH ×2 (08:41→21:00)
[2018-01-26] MEDS: SODIUM CHLORIDE 0.9% FLUSH 10 ML FLUSH IV FLUSH SCH ×2 (08:42→21:00)
[2018-01-26] MEDS ORDERED: HYDROmorphone HCL PF 2 MG/ML VIAL IV PUSH PRN (10:00)
[2018-01-26] MEDS ORDERED: MIDAZOLAM HCL 2 MG/2 ML VIAL ONE (11:12)
[2018-01-26] MEDS ORDERED: INSULIN HUMAN REGULAR 1,000 UNITS/10 ML VIAL SQ PRN (11:15)
[2018-01-26] MEDS ORDERED: SODIUM CHLORID 0.9% 500 ML IV PRN (11:15)
[2018-01-26] MEDS ORDERED: LACTATED RINGER'S 1000 ML IV PRN (11:15)
[2018-01-26] MEDS ORDERED: CHLORHEXIDINE GLUCONATE 2 % 1 PACK (2 CLOTHS) TOPICAL PRN (11:15)
[2018-01-26] MEDS ORDERED: METOPROLOL TARTRATE 25 MG TAB PO PRN (11:15)
[2018-01-26] MEDS ORDERED: POVIDONE IODINE 5% (ANTISEPSIS KIT) 4 APPLICATIONS EACH NARE PRN (11:15)
--- NOTE | 2018-01-26 11:34 | HHI.HP ---
[facility] No Primary Care Physician Admission Diagnosis Left ureteral stone, intractable pain Diagnoses: Travel History International Travel<30 Days: No Contact w/Intl Traveler <30 Da: No Traveled to Known Affected Are: No History of Present Illness Mrs. Juan is a 47-year-old female. Her only past medical history is headaches and a previous history of kidney stones. She says that 11 PM last night she started having excruciating pain aj to her previous kidney stone pain but worse. She came into the hospital for this. Imaging shows a 6 mm kidney stone. No fevers. No other complaints. Pain is at the left side. Review of Systems Constitutional: DENIES: Fatigue, Fever, Chills, Change in appetite Eyes: DENIES: Diplopia, Eye inflammation, Eye pain Ears, nose, mouth, throat: DENIES: Hearing loss, Vertigo, Nasal discharge Respiratory: DENIES: Cough, Wheezing, Shortness of breath Cardiovascular: DENIES: Chest pain, Palpitations, Syncope Gastrointestinal: DENIES: Abdominal pain, Black stools, Bloody stools Genitourinary: COMPLAINS OF: Dysuria Musculoskeletal: DENIES: Joint pain, Muscle aches, Stiffness Integumentary: DENIES: Abnormal pigmentation, Pruritus, Rash, Nail changes Hematologic/lymphatic: DENIES: Bruising, Lymphadenopathy Immunologic/allergic: DENIES: Eczema, Urticaria Neurologic: DENIES: Abnormal gait, Headache, Paresthesias Psychiatric: DENIES: Anxiety, Confusion, Hallucinations Past Family Social History Past Medical History Headache Nephrolithiasis History of urolithiasis Past Surgical History None Reported Medications Reported Meds & Active Scripts Active None Allergies: Coded Allergies: clarithromycin (Unverified Allergy, Severe, 01/26/18) clavulanic acid (Unverified Allergy, Severe, 01/26/18) MD AND PATIENT HAVE OKAYED ORDER FOR AMPICILLIN - DR. WEINER SPOKE WITH ALVINO DUKES IN FAMILY PLACE diatrizoate meglumine (Unverified Allergy, Severe, 01/26/18) gadobenic acid (Unverified Allergy, Severe, 01/26/18) gadodiamide (Unverified Allergy, Severe, 01/26/18) gadoteridol (Unverified Allergy, Severe, 01/26/18) iodixanol (Unverified Allergy, Severe, 01/26/18) iohexol (Unverified Allergy, Severe, 01/26/18) iopamidol (Unverified Allergy, Severe, Meds Given - Hives/Rash, 01/26/18) Active Ordered Medications Administered Medications Medications (Trade) Dose Ordered Sig/Syed Route PRN Reason Start Time Stop Time Status Last Admin Dose Admin Ciprofloxacin/ Dextrose 200 ml @ 200 mls/hr Q12H IV 01/26/18 04:00 01/26/18 03:28 Sodium Chloride 1,000 ml @ 100 mls/hr Q10H IV 01/26/18 03:17 01/26/18 03:29 Sodium Chloride (NS Flush) 2 ml BID IV FLUSH 01/26/18 09:00 01/26/18 08:42 Ondansetron HCl (Zofran Inj) 4 mg Q6H PRN IVP NAUSEA OR VOMITING 01/26/18 03:30 01/26/18 08:39 Family History None Social History No smoking No alcohol abuse No illicit drug abuse Physical Exam Vital Signs Vital Signs Date Time Temp Pulse Resp B/P (MAP) Pulse Ox O2 Delivery O2 Flow Rate FiO2 01/26/18 10:45 97.7 112 20 129/81 (97) 98 01/26/18 08:00 97.0 104 18 179/77 (111) 94 01/26/18 05:03 97.7 101 22 133/68 (89) 95 01/26/18 04:18 78 16 119/58 (78) 99 Room Air 01/26/18 03:00 78 18 147/68 (94) 01/26/18 01:15 87 18 154/77 (102) 01/26/18 00:36 97.2 90 18 148/74 (98) 96 Physical Exam GENERAL: NAD, A&Ox3 HEAD: Normocephalic. NECK: Supple, trachea midline. No lymphadenopathy. EYES: No scleral icterus. No injection or drainage. CARDIOVASCULAR: Regular rate and rhythm without murmurs, gallops, or rubs. RESPIRATORY: Breath sounds equal bilaterally. No accessory muscle use. GASTROINTESTINAL: Abdomen soft, non-tender, nondistended. MUSCULOSKELETAL: No cyanosis, or edema. Left flank tenderness with CVA tenderness. SKIN: Warm and dry. NEURO: No focal neurological deficitis. Laboratory Laboratory Tests Test 01/26/18 01:10 White Blood Count 13.8 Red Blood Count 4.94 Hemoglobin 13.6 Hematocrit 41.3 Mean Corpuscular Volume 83.7 Mean Corpuscular Hemoglobin 27.5 Mean Corpuscular Hemoglobin Concent 32.9 Red Cell Distribution Width 13.0 Platelet Count 274 Mean Platelet Volume 8.2 Neutrophils (%) (Auto) 78.2 Lymphocytes (%) (Auto) 16.0 Monocytes (%) (Auto) 4.3 Eosinophils (%) (Auto) 0.9 Basophils (%) (Auto) 0.6 Neutrophils # (Auto) 10.8 Lymphocytes # (Auto) 2.2 Monocytes # (Auto) 0.6 Eosinophils # (Auto) 0.1 Basophils # (Auto) 0.1 CBC Comment DIFF FINAL Differential Comment Blood Urea Nitrogen 16 Creatinine 1.20 Random Glucose 149 Total Protein 8.3 Albumin 3.9 Calcium Level 9.2 Alkaline Phosphatase 124 Aspartate Amino Transf (AST/SGOT) 21 Alanine Aminotransferase (ALT/SGPT) 34 Total Bilirubin 0.3 Sodium Level 141 Potassium Level 4.0 Chloride Level 109 Carbon Dioxide Level 22.0 Anion Gap 10 Estimat Glomerular Filtration Rate 48 Result Diagram: 01/26/1810901/26/18109 Caprini VTE Risk Assessment Caprini VTE Risk Assessment: No/Low Risk (score <= 1) Caprini Risk Assessment Model Point Value = 1 Point Value = 2 Point Value = 3 Point Value = 5 Age 41-60 Minor surgery BMI > 25 kg/m2 Swollen legs Varicose veins or History of unexplained or recurrent spontaneous Oral contraceptives or hormone replacement Sepsis (< 1 month) Serious lung disease, including pneumonia (< 1 month) Abnormal pulmonary function Acute myocardial infarction Congestive heart failure (< 1 month) History of inflammatory bowel disease Medical patient at bed rest Age 61-74 Arthroscopic surgery Major open surgery (> 45 min) Laparoscopic surgery (> 45 min) Malignancy Confined to bed (> 72 hours) Immobilizing plaster cast Central venous access Age >= 75 History of VTE Family history of VTE Factor V Leiden Prothrombin [id number] Lupus anticoagulant Anticardiolipin antibodies Elevated serum homocysteine Heparin-induced thrombocytopenia Other congenital or acquired thrombophilia Stroke (< 1 month) Elective arthroplasty Hip, pelvis, or leg fracture Acute spinal cord injury (< 1 month) Prophylaxis Regimen Total Risk Factor Score Risk Level Prophylaxis Regimen 0-1 Low Early ambulation 2 Moderate Order ONE of the following: *Sequential Compression Device (SCD) *Heparin 5000 units SQ BID 3-4 Higher Order ONE of the following medications: *Heparin 5000 units SQ TID *Enoxaparin/Lovenox 40 mg SQ daily (WT < 150 kg, CrCl > 30 mL/min) *Enoxaparin/Lovenox 30 mg SQ daily (WT < 150 kg, CrCl > 10-29 mL/min) *Enoxaparin/Lovenox 30 mg SQ BID (WT < 150 kg, CrCl > 30 mL/min) AND/OR *Sequential Compression Device (SCD) 5 or more Highest Order ONE of the following medications: *Heparin 5000 units SQ TID (Preferred with Epidurals) *Enoxaparin/Lovenox 40 mg SQ daily (WT < 150 kg, CrCl > 30 mL/min) *Enoxaparin/Lovenox 30 mg SQ daily (WT < 150 kg, CrCl > 10-29 mL/min) *Enoxaparin/Lovenox 30 mg SQ BID (WT < 150 kg, CrCl > 30 mL/min) AND *Sequential Compression Device (SCD) Assessment and Plan Problem List: (1) Left ureteral calculus ICD Code: N20.1 - Calculus of ureter Status: Acute (2) Intractable abdominal pain ICD Code: R10.9 - Unspecified abdominal pain Status: Acute Assessment and Plan 47-year-old female admitted secondary to biliary colic with a 6 mm ureterolithiasis Ureterolithiasis Urology consulted Stent plan for today Continue pain treatments as needed Continue IV hydration Follow symptoms Consider discharge if pain is subsided with stenting DVT prophylaxis SCDs Physician Certification 2 Midnight Certification Type: Admission for Inpatient Services Order for Inpatient Services The services are ordered in accordance with Medicare regulations or non- Medicare payer requirements, as applicable. In the case of services not specified as inpatient-only, they are appropriately provided as inpatient services in accordance with the 2-midnight benchmark. Estimated LOS (days): 2 days is the estimated time the patient will need to remain in the hospital, assuming treatment plan goals are met and no additional complications. Post-Hospital Plan: Chuckie Billingsley MD Jan 26, 2018 11:34
--- NOTE | 2018-01-26 12:14 | PD.OP ---
Operative Report Date of Surgery: Jan 26, 2018 Preoperative Diagnosis: Left hydronephrosis with 6 mm proximal left ureteral stone Postoperative Diagnosis: Same Procedure: Cystoscopy with left double-J stent insertion with left retrograde pyelogram Anesthesia: General LMA Surgeon: Jaylen Masters Accounting Auditor(s): None Resident Surgeon: None Operation and Findings: 47-year-old female with findings of a 6 mm left proximal ureteral stone causing left-sided hydronephrosis with obstruction. Decision made to bring the patient to the operating room to undergo cystoscopy with left retrograde study left double-J stent insertion. Risks and benefits were discussed preoperatively and the patient was willing to proceed. The patient was brought to the operating room and identified by myself as Rosanne Juan. She was placed in the dorsal lithotomy position, prepped and draped in a sterile fashion, received preprocedure antibiotics and general LMA anesthesia was administered. A 22 Citizen [place] cystoscope was inserted in the bladder. Cystoscopy did not reveal any abnormalities. The left ureteral orifice was identified and a 5 [place] catheter was inserted into the left ureteral orifice and retrograde pyelogram was then performed. The obstructing stone was identified in the proximal ureter. A 0.35 sensor wire was then passed through the open-ended catheter with a good curl in the kidney. The open-ended catheter was removed and a 6 [place] 22 cm stent was then placed over the wire in good position with a good curl in the kidney and the bladder. The bladder was evacuated and she was awoken and transferred to recovery in stable condition. She will follow-up in the office to be scheduled for left extrapleural shockwave lithotripsy in the future. Jaylen Masters DO Jan 26, 2018 12:14
--- NOTE | 2018-01-26 12:24 | MB ---
cc: Jaylen Masters DO DATE: 01/26/2018 HISTORY OF PRESENT ILLNESS: Ms. Juan is a pleasant 47-year-old female who presents with left-sided flank pain. CT scan in the emergency room demonstrated a 6 mm proximal left ureteral stone with hydronephrosis noted. She has had some intermittent nausea noted, but denies any fever or chills. PAST MEDICAL HISTORY: Includes nephrolithiasis, headache, history of neck pain. PAST SURGICAL HISTORY: She denies any prior surgical history. SOCIAL HISTORY: She denies smoking, drinking or using drugs. FAMILY HISTORY: Denies any prior stone within the family. REVIEW OF SYSTEMS: Notes abdominal pain, left-sided flank pain, some nausea as noted. Denies fever or chills. Denies gait disturbances, bleeding disorders, shortness of breath or chest pain. Denies diarrhea or constipation. Remaining review of systems were reviewed and were negative. PHYSICAL EXAMINATION: VITAL SIGNS: Temperature is 97.7, heart rate is 112, respiratory rate 20, 129/81 is her blood pressure. GENERAL: She is an obese 47-year-old female, in no acute distress. HEENT: Normocephalic, atraumatic. Pupils equal, round, regular and reactive to light. Extraocular movements intact. NECK: Supple. HEART: Regular rate and rhythm. LUNGS: Clear. ABDOMEN: Soft. There is some left-sided tenderness noted and left CVA tenderness is also noted. GENITOURINARY: There is normal female external genitalia. EXTREMITIES: Show no evidence of cyanosis, clubbing, or edema. NEUROLOGIC: Cranial nerves 2-12 are intact. LABORATORY DATA: White count 13.8, hemoglobin 13.6, hematocrit 41.3, platelet count of 274. Sodium 141, potassium 4.0, chloride 109, CO2 of 22, BUN of 16, creatinine 1.2, glucose of 149. IMAGING STUDIES: Again, imaging shows a 6 mm proximal left ureteral stone, causing mild to moderate obstructive uropathy/hydronephrosis. ASSESSMENT AND PLAN: This is a 47-year-old female with an obstructing 6 mm proximal left ureteral stone causing hydronephrosis with pain associated with nausea. Recommend cystoscopy with left double-J stent insertion. Risks and benefits discussed and she is willing to proceed. Continue n.p.o. Jaylen DO LYN Loredo/BIANCA , 12:11 PM , 12:23 PM
--- NOTE | 2018-01-26 14:37 | RADRPT ---
EXAM DATE/TIME: 01/26/2018 01:00 [facility] COMPARISON: No previous studies available for comparison. INDICATIONS : Left stent placement. 1.2 minutes 2 CONTRAST: Instilled by Ordering Physician MEDICAL HISTORY : Renal calculi. SURGICAL HISTORY : None. ENCOUNTER: Initial ACUITY: 1 day PAIN SCORE: 0/10 LOCATION: Left abdomen FINDINGS: Limited, intraoperative or recent views what appears to be the left kidney and proximal ureter. Doubl e-J stent is identified with the proximal loop just above the UVJ. Stent is traversing the ureter. Th e distal end of the stent is not visualized on the 2 images provided. CONCLUSION: Left-sided ureteric stent as above. Andrew Nelson MD on January 26, 2018 at 13:40 Board Certified Radiologist. This report was verified electronically.
[2018-01-26] MEDS: HYDROmorphone HCL PF 2 MG/ML VIAL IV PUSH PRN ×2 (16:22→20:19)
[2018-01-26] MEDS ORDERED: oxyCODONE/ACETAMINOPHEN 10 MG/325 MG TAB PO PRN (20:00)
[2018-01-26] MEDS ORDERED: oxyCODONE/ACETAMINOPHEN 5 MG/325 MG TAB PO PRN (20:00)
[2018-01-26 23:37] LABS: BILIRUBIN, URINE NEG (NEG); BLOOD, URINE LARGE (NEG); GLUCOSE,URINE NEG (NEG); KETONE, URINE NEG (NEG); NITRITE,URINE NEG (NEG); PH, URINE 6.5 (5.0-8.5); URINE LEUKOCYTE ESTERASE SMALL (NEG)
[2018-01-26 23:42] LABS: URINE COLOR RED (YELLW/STRAW)
[2018-01-26 23:43] LABS: BACTERIA, URINE OCC /hpf; RBC, URINE INNUM /hpf (0-3); SQUAMOUS EPITHELIAL CELL URINE 0-5 /hpf (0-5)
[2018-01-27] VITALS: BP 118/58; PULSE 97; RESP 20; TEMP 97.3; O2SAT 97
[2018-01-27] MEDS: SODIUM CHLOR 0.9% 1000 ML INJ 1,000 ML IV SCH ×2 (02:22→12:46)
[2018-01-27 04:00] VITALS: BP 143/89; PULSE 84; RESP 20; TEMP 97.6; O2SAT 97
[2018-01-27] MEDS: CIPROFLOXACIN 400 MG PREMIX 200 ML IV SCH ×2 (04:45→16:37)
[2018-01-27] MEDS: PROMETHAZINE HCL 25 MG TAB PO PRN ×3 (04:54→18:01)
[2018-01-27 07:26] LABS: AUTOMATED NEUTROPHIL # 8.9 TH/MM3 (1.8-7.7); BASOPHIL % 0.1 % (0.0-2.0); EOSINOPHIL % 0.2 % (0.0-4.0); HEMATOCRIT 36.4 % (35.0-46.0); HEMOGLOBIN 12.4 GM/DL (11.6-15.3); LYMPH % 16.5 % (9.0-44.0); LYMPHOCYTE # 1.9 TH/MM3 (1.0-4.8); MEAN CELL VOLUME 85.6 FL (80.0-100.0); MEAN CORPUSCULAR HEMOGLOBIN 29.1 PG (27.0-34.0); MEAN PLATELET VOLUME 7.9 FL (7.0-11.0); MONO % 4.7 % (0.0-8.0); MONOCYTE # 0.5 TH/MM3 (0-0.9); NEUT % 78.5 % (16.0-70.0); PLATELET COUNT 238 TH/MM3 (150-450); RED BLOOD COUNT 4.25 MIL/MM3 (4.00-5.30); RED CELL DISTRIBUTION WIDTH 13.3 % (11.6-17.2); WHITE BLOOD COUNT 11.3 TH/MM3 (4.0-11.0)
[2018-01-27 07:36] LABS: CHLORIDE 110 MEQ/L (98-107); SODIUM (NA) 142 MEQ/L (136-145)
[2018-01-27 07:47] LABS: GLUCOSE,RANDOM 146 MG/DL (74-106)
[2018-01-27 07:48] LABS: CALCIUM 8.4 MG/DL (8.5-10.1)
[2018-01-27 07:55] LABS: ALBUMIN 3.3 GM/DL (3.4-5.0); ALKALINE PHOSPHATASE 101 U/L (45-117); ALT (GPT) 25 U/L (10-53); AST (GOT) 13 U/L (15-37); BICARBONATE 25.3 MEQ/L (21.0-32.0); BLOOD UREA NITROGEN 11 MG/DL (7-18); CREATININE 0.95 MG/DL (0.50-1.00); GLOMERULAR FILTRATION RATE 63 ML/MIN (>89); TOTAL BILIRUBIN ADULT 0.5 MG/DL (0.2-1.0); TOTAL PROTEIN 7.3 GM/DL (6.4-8.2)
[2018-01-27 08:00] VITALS: BP 134/72; PULSE 81; RESP 18; TEMP 97; O2SAT 100
[2018-01-27] MEDS: SODIUM CHLORIDE 0.9% FLUSH 10 ML FLUSH IV FLUSH SCH ×2 (08:29→19:47)
[2018-01-27] MEDS: DOCUSATE SODIUM 50 MG/SENNA 8.6 MG TAB PO SCH ×2 (08:31→19:56)
[2018-01-27] MEDS ORDERED: INFLUENZA VIRUS VACCINE (QUADRIVALENT) 0.5 ML SYR IM ONE (10:00)
[2018-01-27 12:00] VITALS: BP 112/67; PULSE 84; RESP 18; TEMP 98.4; O2SAT 99
[2018-01-27] MEDS: ONDANSETRON HCL 4 MG/2 ML VIAL IVP PRN (12:48)
--- NOTE | 2018-01-27 13:20 | HHI.PR ---
Subjective Remarks RN denies any deterioration since last night. Patient reports she feels much better since admission. Objective Vital Signs Date Time Temp Pulse Resp B/P (MAP) Pulse Ox O2 Delivery O2 Flow Rate FiO2 01/27/18 08:00 97.0 81 18 134/72 (92) 100 01/27/18 04:00 97.6 84 20 143/89 (107) 97 01/27/18 00:00 97.3 97 20 118/58 (78) 97 01/26/18 20:00 97.1 109 20 155/73 (100) 95 01/26/18 16:00 96.5 95 15 138/82 (100) 95 I/O 01/26/18 01/26/18 01/26/18 01/27/18 01/27/18 01/27/18 07:00 15:00 23:00 07:00 15:00 23:00 Intake Total 1420 ml 600 ml 1230 ml 300 ml Output Total 300 ml 2300 ml Balance 1420 ml 300 ml -1070 ml 300 ml Intake Oral 200 ml 30 ml 300 ml IV Total 1420 ml 400 ml 1200 ml Output Urine Total 300 ml 2300 ml # Voids 2 3 2 1 Result Diagram: 01/27/18 0700 01/27/18 0700 Objective Remarks No robson tenderness to palpation over abdomen Lying in bed, no acute distress A/P Assessment and Plan 47-year-old female admitted secondary to biliary colic with a 6 mm ureterolithiasis Ureterolithiasis s/p Cystoscopy with left double-J stent insertion with left retrograde pyelogram Transitioning to p.o. pain medication Possible UTI -Continue Cipro, need to ensure the urine culture is not growing ESBL NICHOL - improving w/ IVFs DVT prophylaxis lovenox Discharge Planning d/c anticipated on 01/28 once urine ensures no ESBL ecoli growth Javan Esquivel MD Jan 27, 2018 13:20
[2018-01-27 16:00] VITALS: BP 111/74; PULSE 80; RESP 20; TEMP 98.4; O2SAT 96
[2018-01-27] MEDS: ENOXAPARIN SODIUM 30 MG/0.3 ML SYRINGE SQ SCH (16:37)
[2018-01-27] MEDS: ACETAMINOPHEN/HYDROcodone 325 MG/5 MG TAB PO PRN ×2 (17:52→18:01)
[2018-01-27 20:00] VITALS: BP 135/77; PULSE 96; RESP 20; TEMP 97; O2SAT 98
[2018-01-28] VITALS: BP 118/55; PULSE 84; RESP 20; TEMP 96.7; O2SAT 97
[2018-01-28] MEDS: SODIUM CHLOR 0.9% 1000 ML INJ 1,000 ML IV SCH ×3 (00:28→11:43)
[2018-01-28] MEDS: CIPROFLOXACIN 400 MG PREMIX 200 ML IV SCH ×2 (03:47→16:18)
[2018-01-28] MEDS: ACETAMINOPHEN/HYDROcodone 325 MG/5 MG TAB PO PRN ×3 (04:57→17:25)
[2018-01-28] MEDS: PROMETHAZINE HCL 25 MG TAB PO PRN ×3 (04:57→17:24)
[2018-01-28 08:00] VITALS: BP 142/74; PULSE 73; RESP 20; TEMP 97; O2SAT 98
[2018-01-28] MEDS: SODIUM CHLORIDE 0.9% FLUSH 10 ML FLUSH IV FLUSH SCH ×2 (08:38→21:00)
[2018-01-28] MEDS: DOCUSATE SODIUM 50 MG/SENNA 8.6 MG TAB PO SCH ×2 (08:38→21:37)
--- NOTE | 2018-01-28 11:21 | HHI.PR ---
Subjective Remarks RN does report patient having some mild intermittent nausea with no vomiting. Patient does affirm this. Says her suprapubic pain is much improved since admission. Objective Vital Signs Date Time Temp Pulse Resp B/P (MAP) Pulse Ox O2 Delivery O2 Flow Rate FiO2 01/28/18 08:00 97.0 73 20 142/74 (96) 98 01/28/18 00:00 96.7 84 20 118/55 (76) 97 01/27/18 20:00 97.0 96 20 135/77 (96) 98 01/27/18 18:54 18 01/27/18 16:00 98.4 80 20 111/74 (86) 96 01/27/18 12:00 98.4 84 18 112/67 (82) 99 I/O 01/27/18 01/27/18 01/27/18 01/28/18 01/28/18 01/28/18 07:00 15:00 23:00 07:00 15:00 23:00 Intake Total 1230 ml 1950 ml 2916 ml 760 ml Output Total 2300 ml 600 ml Balance -1070 ml 1350 ml 2916 ml 760 ml Intake Oral 30 ml 1250 ml 300 ml IV Total 1200 ml 700 ml 2616 ml 760 ml Output Urine Total 2300 ml 600 ml # Voids 2 1 2 3 # Bowel Movements 0 Result Diagram: 01/27/18 0700 01/27/18 0700 Objective Remarks No robson tenderness to palpation over abdomen Sleeping, easily awoken, lying in bed, no acute distress A/P Assessment and Plan 47-year-old female admitted secondary to biliary colic with a 6 mm ureterolithiasis Ureterolithiasis s/p Cystoscopy with left double-J stent insertion with left retrograde pyelogram p.o. pain medication Possible UTI -Continue Cipro, need to ensure the urine culture is not growing ESBL NICHOL - improving w/ IVFs DVT prophylaxis lovenox Discharge Planning d/c anticipated on 01/28 once urine ensures no ESBL ecoli growth Javan Esquivel MD Jan 28, 2018 11:21
[2018-01-28 12:00] VITALS: BP 144/78; PULSE 89; RESP 18; TEMP 97.7; O2SAT 97
[2018-01-28 16:00] VITALS: BP 120/76; PULSE 82; RESP 18; TEMP 99.4; O2SAT 98
[2018-01-28] MEDS: ENOXAPARIN SODIUM 30 MG/0.3 ML SYRINGE SQ SCH (16:19)
[2018-01-28 19:26] VITALS: BP 144/90; PULSE 82; RESP 20; TEMP 97.5; O2SAT 95
[2018-01-29] VITALS: BP 126/59; PULSE 82; RESP 18; TEMP 98.7; O2SAT 99
[2018-01-29] MEDS: PROMETHAZINE HCL 25 MG TAB PO PRN ×2 (03:55→10:23)
[2018-01-29] MEDS: ACETAMINOPHEN/HYDROcodone 325 MG/5 MG TAB PO PRN (03:55)
[2018-01-29] MEDS: SODIUM CHLOR 0.9% 1000 ML INJ 1,000 ML IV SCH (03:56)
[2018-01-29 04:00] VITALS: BP 133/69; PULSE 81; RESP 18; TEMP 98.8; O2SAT 99
[2018-01-29] MEDS: CIPROFLOXACIN 400 MG PREMIX 200 ML IV SCH (04:54)
[2018-01-29 08:00] VITALS: BP 119/74; PULSE 79; RESP 18; TEMP 97; O2SAT 97
[2018-01-29] MEDS: DOCUSATE SODIUM 50 MG/SENNA 8.6 MG TAB PO SCH (08:17)
[2018-01-29] MEDS: SODIUM CHLORIDE 0.9% FLUSH 10 ML FLUSH IV FLUSH SCH (08:18)
[2018-01-29] MEDS ORDERED: ONDA4TAB7 SL (09:01)
[2018-01-29] MEDS ORDERED: NORC5TAB PO (09:01)
[2018-01-29] MEDS ORDERED: CIPR500T2 PO (09:01)
[2018-01-29] MEDS ORDERED: TAMS0.4C4 PO (09:01)
--- NOTE | 2018-01-29 09:02 | HHI.DCPOC ---
Discharge Care Plan Diagnosis: (1) Left ureteral calculus (2) Intractable abdominal pain Goals to Promote Your Health * To prevent worsening of your condition and complications * To maintain your health at the optimal level Directions to Meet Your Goals Take your medications as prescribed Follow your dietary instruction Follow activity as directed Keep your appointments as scheduled Take your immunizations and boosters as scheduled If your symptoms worsen call your PCP, if no PCP go to Urgent Care Center or Emergency Room Smoking is Dangerous to Your Health. Avoid second hand smoke Call the 24-hour hour crisis hotline for domestic abuse at Javan Esquivel MD Jan 29, 2018 09:02
--- NOTE | 2018-01-29 09:04 | HHI.DS ---
Discharge Summary Admission Date Jan 26, 2018 at 03:28 Discharge Date: Jan 29, 2018 Admitting Diagnosis Left ureteral stone, intractable pain (1) Left ureteral calculus ICD Code: N20.1 - Calculus of ureter Status: Acute (2) Intractable abdominal pain ICD Code: R10.9 - Unspecified abdominal pain Status: Acute Procedures Cystoscopy with left double-J stent insertion with left retrograde pyelogram Brief History - From Admission Mrs. Juan is a 47-year-old female. Her only past medical history is headaches and a previous history of kidney stones. She says that 11 PM last night she started having excruciating pain aj to her previous kidney stone pain but worse. She came into the hospital for this. Imaging shows a 6 mm kidney stone. No fevers. No other complaints. Pain is at the left side. CBC/BMP: 01/27/18 0700 01/27/18 0700 Significant Findings Laboratory Tests Test 01/26/18 23:32 01/27/18 07:00 Urine Color RED (YELLW/STRAW) Urine Protein 30 mg/dL (NEG-TRACE) Urine Occult Blood LARGE (NEG) Urine Leukocyte Esterase SMALL (NEG) Urine RBC INNUM /hpf (0-3) Urine WBC 9-14 /hpf (0-5) Urine Bacteria OCC /hpf (NONE) White Blood Count 11.3 TH/MM3 (4.0-11.0) Neutrophils (%) (Auto) 78.5 % (16.0-70.0) Neutrophils # (Auto) 8.9 TH/MM3 (1.8-7.7) Random Glucose 146 MG/DL (74-106) Albumin 3.3 GM/DL (3.4-5.0) Calcium Level 8.4 MG/DL (8.5-10.1) Aspartate Amino Transf (AST/SGOT) 13 U/L (15-37) Chloride Level 110 MEQ/L (98-107) Estimat Glomerular Filtration Rate 63 ML/MIN (>89) PE at Discharge Lying in bed, no abdominal tenderness palpation, no acute distress Hospital Course Patient was admitted, started on IV fluids IV antibiotics. Was found to have a left ureteral stone. Urology performed cystoscopy with a left double-J stent distention with a left retrograde pyelogram. Patient's pain had significantly improved, was tolerating p.o. intake. Urine culture was negative. Patient has met maximal benefit from hospitalization and is clinically stable for discharge. Pt Condition on Discharge: Stable Discharge Disposition: Discharge Home Discharge Time: <= 30 minutes Discharge Instructions DIET: Follow Instructions for: Heart Healthy Diet Activities you can perform: Regular-No Restrictions Follow up Referrals: PCP Follow-up - 1 Week Urology - 2 Weeks with Jaylen Masters DO New Medications: Ciprofloxacin (Ciprofloxacin) 500 Mg Tab 500 MG PO BID for Infection, #14 TAB 0 Refills Ondansetron Odt (Ondansetron Odt) 4 Mg Tab 4 MG SL Q6HR PRN for Nausea/Vomiting, #12 TAB 0 Refills Tamsulosin (Tamsulosin) 0.4 Mg Cap 0.4 MG PO HS for Manage Prostate Problems, #30 CAP 0 Refills Javan Esquivel MD Jan 29, 2018 09:04
[2018-01-29 12:00] VITALS: BP 119/70; PULSE 86; RESP 18; TEMP 97; O2SAT 96
[2018-01-29] MEDS ORDERED: CETIRIZINE HCL 10 MG TAB PO SCH (22:00)
== END 2018-01-29 15:20 | disposition home or self-care (01) | DRG 694 ==
LOC: PHED 00:29 → PHEDA 03:28 → PH3A 04:51
PROVIDERS: ADMIT Hospitalist; ATTEND Hospitalist
PROC: 0T778DZ Dilation of Left Ureter with Intraluminal Device, Via Natural or Artificial Opening Endoscopic (ICD-10-PCS; 2018-01-26)
PROC: BT1F1ZZ Fluoroscopy of Left Kidney, Ureter and Bladder using Low Osmolar Contrast (ICD-10-PCS; principal; 2018-01-26 11:35)
DX: N13.2 Hydronephrosis with renal and ureteral calculous obstruction (principal); N17.9 Acute kidney failure, unspecified; Z68.42 Body mass index [BMI] 45.0-49.9, adult; E66.9 Obesity, unspecified; Z23 Encounter for immunization
CPT/HCPCS: 74176; 74420; 80053; 81001; 85025; 87086; 90471; 90686; 96361; 96374; 96375; 96376; C1769; C2617; G0008; J0744; J0780; J1170; J1650; J1885; J2250; J2270; J2405; J3010; J7030; J7120; Q0169; Q2038

== ENCOUNTER → 2018-02-21 | Day surgery (SDC) | payer MEDICAID ==
[~2018-02-21] VITALS: Ht 167.6 cm; Wt 127.6 kg
[~2018-02-21] MED LIST changes: +*PROMETHAZINE 25 MG/ML VIAL PERIprocedural use ONLY ONE; +ACETAMINOPHEN 1000 MG/100 ML 100 ML IV ONE; +APREPITANT 40 MG CAP ONE; +CETI10TA71 PO; +CHLORHEXIDINE GLUCONATE 2 % 1 PACK (2 CLOTHS) TOPICAL PRN; +CIPR500T2 PO; +DEXAMETHASONE SOD PHOS 4 MG/ML VIAL IV ONE; +DO NOT ADM ANY ANTICOAGULANT DRUGS PRN; +FAMOTIDINE 20 MG/2 ML VIAL ONE; +INSULIN HUMAN REGULAR 1,000 UNITS/10 ML VIAL SQ PRN; +LACTATED RINGER'S 1000 ML IV PRN; -LEVA750T PO; +LIDOCAINE HCL 1% PF 5 ML SYRINGE OTHER ONE; +METOPROLOL TARTRATE 25 MG TAB PO PRN; +MIDAZOLAM HCL 2 MG/2 ML VIAL ONE; +ONDA4TAB7 SL; +ONDANSETRON HCL 4 MG/2 ML VIAL IV ONE; +ONDANSETRON HCL 4 MG/2 ML VIAL IV PUSH PRN; +ONDANSETRON HCL 4 MG/2 ML VIAL ONE; +OXYC1TAB63; +PEPT262C2 CHEW; +PERC5TAB12 PO; +PHEN-525 PO; +POVIDONE IODINE 5% (ANTISEPSIS KIT) 4 APPLICATIONS EACH NARE PRN; -PRED10 PO; +PROPOFOL 200 MG/20 ML AMP IV ONE; +SODIUM CHLORID 0.9% 500 ML IV PRN; +SUCCINYLCHOLINE CHLORIDE 100 MG/5 ML SYRINGE IV PUSH ONE; +TAMS0.4C4 PO; +oxyCODONE/ACETAMINOPHEN 5 MG/325 MG TAB PO PRN
--- NOTE | 2018-02-21 11:21 | RADRPT ---
EXAM DATE/TIME: 02/21/2018 10:48 [facility] COMPARISON: No previous studies available for comparison. INDICATIONS : Pre op lithortripsy. MEDICAL HISTORY : None. SURGICAL HISTORY : Stent placement. ENCOUNTER: Initial ACUITY: 1 day PAIN SCORE: 2/10 LOCATION: Left abdomen. FINDINGS: Supine view of the abdomen was performed. The abdominal bowel gas pattern is normal. No abnormal ma sses, calcifications, or organomegaly is seen. The osseous structures are unremarkable. CONCLUSION: Normal examination. Left-sided double-J ureteral catheter in excellent position Emerson Sheriff MD on February 21, 2018 at 11:18 Board Certified Radiologist. This report was verified electronically.
--- NOTE | 2018-02-21 13:58 | PD.OP ---
Operative Report Date of Surgery: Feb 21, 2018 Preoperative Diagnosis: (1) Renal calculus, left Postoperative Diagnosis: (1) Renal calculus, left Procedure: Extracorporeal shockwave lithotripsy left renal calculus Anesthesia: General Surgeon: Yung Mg Loom Overhauler(s): None Operation and Findings: Indication for procedure: Case of a pleasant 47-year-old female with history of left-sided nephrolithiasis who status post left ureteral stent placement and presents today to undergo extracorporeal shockwave lithotripsy. Operative procedure in detail: Patient was brought to the operating room suite placed supine on the lithotripsy table. She was then placed under general anesthesia. After an appropriate timeout was undertaken fluoroscopic evaluation was performed. There were no stones seen along the course of the previously placed stent. There was a single approximately 6mm calculus noted involving the mid aspect of the left kidney. I then proceeded with treatment of the stone utilizing extrapleural shockwave lithotripsy. The [employer] mobile lithotripsy unit was utilized to accomplish this. The patient received a total of 3000 shocks with a maximum power level setting of 6. At the conclusion of the procedure the stone was noted to have broken down into multiple smaller fragments. The patient tolerated the procedure without complications and was transferred to the PACU in satisfactory condition. Yung Mg MD Feb 21, 2018 13:58
[2018-02-21 15:55] VITALS: BP 121/67; PULSE 81; RESP 20; TEMP 98; O2SAT 97
== END | disposition home or self-care (01) ==
LOC: HSDC 10:15
PROVIDERS: ATTEND Urology
DX: N20.0 Calculus of kidney (principal)
CPT/HCPCS: 00873; 50590; 74018; J0131; J0330; J1100; J2250; J2405; J2550; J3010; J7120; J8501

== ENCOUNTER → 2018-03-08 | Outpatient (CLI) | payer MEDICAID ==
[~2018-03-08] MED LIST changes: -*PROMETHAZINE 25 MG/ML VIAL PERIprocedural use ONLY ONE; -ACETAMINOPHEN 1000 MG/100 ML 100 ML IV ONE; -APREPITANT 40 MG CAP ONE; -CHLORHEXIDINE GLUCONATE 2 % 1 PACK (2 CLOTHS) TOPICAL PRN; -CIPR500T2 PO; -DEXAMETHASONE SOD PHOS 4 MG/ML VIAL IV ONE; -DO NOT ADM ANY ANTICOAGULANT DRUGS PRN; -FAMOTIDINE 20 MG/2 ML VIAL ONE; -INSULIN HUMAN REGULAR 1,000 UNITS/10 ML VIAL SQ PRN; -LACTATED RINGER'S 1000 ML IV PRN; -LIDOCAINE HCL 1% PF 5 ML SYRINGE OTHER ONE; -METOPROLOL TARTRATE 25 MG TAB PO PRN; -MIDAZOLAM HCL 2 MG/2 ML VIAL ONE; -ONDANSETRON HCL 4 MG/2 ML VIAL IV ONE; -ONDANSETRON HCL 4 MG/2 ML VIAL IV PUSH PRN; -ONDANSETRON HCL 4 MG/2 ML VIAL ONE; -POVIDONE IODINE 5% (ANTISEPSIS KIT) 4 APPLICATIONS EACH NARE PRN; -PROPOFOL 200 MG/20 ML AMP IV ONE; -SODIUM CHLORID 0.9% 500 ML IV PRN; -SUCCINYLCHOLINE CHLORIDE 100 MG/5 ML SYRINGE IV PUSH ONE; -oxyCODONE/ACETAMINOPHEN 5 MG/325 MG TAB PO PRN
--- NOTE | 2018-03-08 11:37 | RADRPT ---
EXAM DATE/TIME: 03/08/2018 10:28 [facility] COMPARISON: CT ABDOMEN & PELVIS W/O CONTRAST, January 26, 2018, 2:13. ABDOMEN KUB ONLY, February 21, 2018, 10:48. INDICATIONS : Evaluate left side renal calculi MEDICAL HISTORY : Renal calculi. SURGICAL HISTORY : Lithortripsy, stent placement ENCOUNTER: Initial ACUITY: 2 weeks PAIN SCORE: 2/10 LOCATION: Left Abdomen FINDINGS: A double-J left ureteral stent is present. There is potentially an oblong slightly greater than 1 cm calcific density adjacent to the proximal aspect of the stent. Additionally, tiny calculus overlies t he lower pole region of the left kidney measuring 6 mm or so. There are no suspicious calcific densit ies present over the pelvis or on the right side. Regional skeleton is grossly intact. The intestinal gas pattern is nonspecific and benign. CONCLUSION: Left kidney and ureteral stones. Left ureteral stent in place. Cj Jain MD on March 08, 2018 at 11:32 Board Certified Radiologist. This report was verified electronically.
== END ==
LOC: HRAD 10:05
PROVIDERS: ATTEND Urology
DX: N20.0 Calculus of kidney (principal)
CPT/HCPCS: 74018

== ENCOUNTER → 2018-03-27 | Day surgery (SDC) | payer MEDICAID ==
[~2018-03-27] VITALS: Ht 167.6 cm; Wt 127.7 kg
[~2018-03-27] MED LIST changes: +*PROMETHAZINE 25 MG/ML VIAL PERIprocedural use ONLY ONE; +AMPICILLIN 1 GM/NS 100 ML IV SCH; +APREPITANT 40 MG CAP ONE; +BELLADONNA ALKALOIDS/OPIUM 60 MG SUPP RECTAL ONE; +DEXAMETHASONE SOD PHOS 4 MG/ML VIAL IV ONE; +DO NOT ADM ANY ANTICOAGULANT DRUGS PRN; +FAMOTIDINE 20 MG/2 ML VIAL ONE; +GENTAMICIN INJ 240 MG in SODIUM CHLORIDE 0.9% INJ 100 ML IV SCH; +GLYCOPYRROLATE 1 MG/5 ML SYRINGE IV PUSH ONE; +LACTATED RINGER'S 1000 ML IV PRN; +LIDOCAINE HCL 1% PF 5 ML SYRINGE OTHER ONE; +METOPROLOL TARTRATE 25 MG TAB PO PRN; +MORPHINE SULFATE 4 MG/ML INJ IV PRN; +NEOSTIGMINE 5 MG/5 ML SYRINGE IV PUSH ONE; +ONDANSETRON HCL 4 MG/2 ML VIAL IV ONE; +ONDANSETRON HCL 4 MG/2 ML VIAL IV PUSH PRN; +ONDANSETRON HCL 4 MG/2 ML VIAL ONE; +PROPOFOL 200 MG/20 ML AMP IV ONE; +ROCURONIUM INJ 50 MG/5 ML SYRINGE IV PUSH ONE; +SCOPOLAMINE 1.5 MG PATCH ONE; +SODIUM CHLORID 0.9% 500 ML IV PRN; +oxyCODONE/ACETAMINOPHEN 5 MG/325 MG TAB PO PRN
[2018-03-27 09:26] LABS: AUTOMATED NEUTROPHIL # 4.9 TH/MM3 (1.8-7.7); BASOPHIL # 0.1 TH/MM3 (0-0.2); BASOPHIL % 0.7 % (0.0-2.0); EOSINOPHIL # 0.4 TH/MM3 (0-0.4); EOSINOPHIL % 4.4 % (0.0-4.0); HEMATOCRIT 40.2 % (35.0-46.0); HEMOGLOBIN 13.4 GM/DL (11.6-15.3); LYMPH % 29.6 % (9.0-44.0); LYMPHOCYTE # 2.5 TH/MM3 (1.0-4.8); MEAN CELL VOLUME 84.9 FL (80.0-100.0); MEAN CORPUSCULAR HEMOGLOBIN 28.4 PG (27.0-34.0); MEAN CORPUSCULAR HGB CONC 33.4 % (32.0-36.0); MEAN PLATELET VOLUME 7.9 FL (7.0-11.0); MONO % 5.8 % (0.0-8.0); MONOCYTE # 0.5 TH/MM3 (0-0.9); NEUT % 59.5 % (16.0-70.0); PLATELET COUNT 300 TH/MM3 (150-450); RED BLOOD COUNT 4.73 MIL/MM3 (4.00-5.30); RED CELL DISTRIBUTION WIDTH 13.6 % (11.6-17.2); WHITE BLOOD COUNT 8.3 TH/MM3 (4.0-11.0)
--- NOTE | 2018-03-27 11:53 | PD.OP ---
Operative Report Date of Surgery: March 27, 2018 Preoperative Diagnosis: Left ureteral and renal calculi Postoperative Diagnosis: Same Procedure: Cystoscopy, left ureteroscopy, stone extraction of left ureteral and renal calculi. Anesthesia: LEXY Surgeon: Jaylen Masters Liberal Arts Teacher(s): None Resident Surgeon: None Operation and Findings: 47-year-old female with history of a left renal and ureteral calculi who underwent left extracoporeal shockwave lithotripsy in the past. The patient was noted to have a few residual stones along the left ureteral stent as well as up in the left kidney. Decision is made to bring the patient to the operating room to undergo cystoscopy left ureteroscopy with possible laser lithotripsy and stone extraction with stent exchange. Risk and benefits were discussed preoperatively and she is willing to proceed. The patient was brought to the operating room and identified by myself as Rosanne Juan. She was placed in the dorsal lithotomy position, prepped and draped in usual sterile fashion, received preprocedure antibiotics and general endotracheal tube anesthesia was administered. 22 Serbian cystoscope was inserted in the bladder and using the alligator grasper the left stent was brought out to the urethral meatus. I was unable to feed the wire through the stent due to encrustation. The stent was then removed. The cystoscope was reinserted into the bladder and a 5 Serbian opening catheter followed. A 0.35 sensor wire was then passed through the open-ended catheter leaving in good position with a good curl in the kidney. The scope and the open-ended catheter were removed. The rigid ureteroscope was then passed along the wire up into the proximal ureter and a few ureteral stones were identified. Using the nitinol basket the stones were then retrieved and sent to pathology. The left ureter was then clear of stones. A navigator ureteral access sheath was then passed over the wire left in good position. The wire was then removed. The flexible ureteroscope was then passed up into the kidney and stones are visualized in the lower pole. These were then retrieved with a nitinol basket and sent to pathology. The kidney was then cleared of any stone fragments. Only a few small unretrievable stones were identified. The wire was then passed through the ureteral access sheath leaving in good position. The ureteral access sheath was then removed. The cystoscope was backloaded over a wire and then a 22 cm 6 Serbian left double-J stent was placed with a good curl in the kidney and the bladder. The string was left attached and taped to the suprapubic area with Tegaderm. The bladder was evacuated and she was awoken and extubated and transferred recovery in stable condition. She will follow-up tomorrow in the office to undergo a string pull. Jaylen Masters DO March 27, 2018 11:53
[2018-03-27 14:49] VITALS: BP 132/70; PULSE 71; RESP 15; TEMP 97.8; O2SAT 98
== END | disposition home or self-care (01) ==
LOC: HSDC 08:32
PROVIDERS: ATTEND Urology
DX: N20.2 Calculus of kidney with calculus of ureter (principal); G43.909 Migraine, unspecified, not intractable, without status migrainosus; M19.90 Unspecified osteoarthritis, unspecified site; Z87.891 Personal history of nicotine dependence; Z01.818 Encounter for other preprocedural examination
CPT/HCPCS: 00918; 52320; 52332; 82365; 82370; 85025; 88300; C1769; C2617; J0290; J1100; J1580; J2405; J2550; J2710; J3010; J7120; J8501